=== PATIENT | female | born 1960 | race Two or more races ===

== ENCOUNTER → 2017-01-30 | Outpatient (CLI) | payer OTHER ==
[~2017-01-30] VITALS: Ht 157.5 cm; Wt 77.1 kg
[~2017-01-30] MED LIST: CALC-98 PO; CRESTOR10 MG PO; GLUC100018 PO; INSU100C SQ; INSU100V8 SQ; LIDOCAINE 2%/EPI 1:100,000 20 ML VIAL. IJ ONE; LIRA0.6P2 SQ; LISI2.5T PO; METF-620 PO
[2017-01-30 08:33] VITALS: BP 133/76
--- NOTE | 2017-02-01 14:48 | PATHOLOGY ---
PATHOLOGY REPORT * * * * * * * * FINAL DIAGNOSIS: Breast tissue, left breast nodule needle biopsy: - Ancient fibroadenoma, with focal calcifications. - Stromal fibrosis. COMMENT: There is no evidence of malignancy. (JPM:mgr; 02/01/2017) REPORT ELECTRONICALLY SIGNED BY: Buddy Schumacher M.D. DATE/TIME: 02/01/2017 14:47 * * * * * * * * GROSS PATHOLOGY: Received in formalin labeled "Chuy Stubbs, left breast tissue," are multiple needle cores of yellow-pinedo fibrofatty tissue measuring 2.5 x 1.9 x 0.4 cm in aggregate dimensions. The tissue is submitted in its entirety in cassettes A1 and A2. The cold ischemic time is 8 minutes. The total formalin fixation time is 33 hours and 37 minutes. ([facility]; 01/31/2017) INITIAL CPT CODE(S): A; 43976 Professional services [place] [place] [address] Technical services performed by [facility] at [address] [place] [address]. SPECIMEN(S) RECEIVED: A.Calcs in grid CLINICAL HISTORY: Nodule with calcs; calcs in grid PATIENT: CHUY STUBBS /AGE: 801/26/1960 (Age: 57) PATIENT #: [id number] ALT CASE #: SPECIMEN COLLECTION DATE: 01/30/2017 SPECIMEN RECEIVED DATE: 01/30/2017 [facility] - [address] [place] [address] - PHONE: [phone] * * * END OF REPORT * * *
--- NOTE | 2017-02-04 13:00 | RAD ---
Stereotactic left breast biopsy, 01/30/2017: History: Suspicious microcalcifications Outside mammograms demonstrated a cluster of microcalcifications in the upper outer quadrant of the left breast. Under local anesthesia, aseptic conditions and stereotactic guidance the [employer] [facility] biopsy instrument was passed into this region via a superior approach. Multiple 9 gauge vacuum-assisted core samples were obtained. Specimen mammography demonstrated a majority of the targeted microcalcifications within the specimens. A biopsy marker was deposited at the biopsy site. The biopsy instrument was then removed and hemostasis obtained. Two-view postprocedural mammograms were then obtained on a separate digital mammography unit to document position of the biopsy marker. There is one residual, coarse microcalcification visible at the biopsy site. The patient tolerated the procedure well and left the department in good condition. The subsequent pathology report indicated the presence of a fibroadenoma. This is a concordant finding.
== END | disposition home or self-care (01) ==
LOC: MAMMO 06:48
PROVIDERS: ATTEND Surgery
DX: R92.0 Mammographic microcalcification found on diagnostic imaging of breast (principal)
CPT/HCPCS: 19085; 77022; 88305; C1713; G0206; J3490; 77065

== ENCOUNTER → 2018-11-05 | Outpatient (CLI) | payer BC ==
[2017-01-30 08:33] VITALS: BP 133/76
[~2018-11-05] MED LIST changes: -LIDOCAINE 2%/EPI 1:100,000 20 ML VIAL. IJ ONE; -METF-620 PO; +METF10007 PO
--- NOTE | 2018-11-05 09:17 | RAD ---
DATE: 11/05/2018 EXAM: MAMMO SOL SCREENING BILATERAL HISTORY: Routine screening COMPARISON: 01/30/2017, 12/19/2016 This study was interpreted with the benefit of Computerized Aided Detection (CAD). Breast Density: SCATTERED The breast parenchyma shows scattered fibroglandular densities. Breast parenchyma level B. FINDINGS: 2-D and 3-D tomosynthesis imaging was performed in CC and MLO projections. An old breast biopsy marker is present laterally in the left breast. No new or enlarging breast densities are seen. Benign type calcifications are again noted. A cluster of microcalcifications in the lateral aspect of the right breast appears stable. No suspicious microcalcifications have developed. IMPRESSION: There is no mammographic evidence of malignancy in either breast. BI-RADS CATEGORY: 2 BENIGN FINDING(S) RECOMMENDED FOLLOW-UP: 12M 12 MONTH FOLLOW-UP PQRS compliance statement: Patient information was entered into a reminder system with a target due date for the next mammogram. Mammography is a sensitive method for finding small breast cancers, but it does not detect them all and is not a substitute for careful clinical examination. A negative mammogram does not negate a clinically suspicious finding and should not result in delay in biopsying a clinically suspicious abnormality. "Our facility is accredited by the [employer] Mammography [employer]."
== END | disposition home or self-care (01) ==
LOC: MAMMO 08:11
PROVIDERS: ATTEND Family Medicine
DX: Z12.31 Encounter for screening mammogram for malignant neoplasm of breast (principal); N64.89 Other specified disorders of breast
CPT/HCPCS: 77063; 77067

== ENCOUNTER → 2020-03-29 | Outpatient (CLI) | payer BC ==
[2017-01-30 08:33] VITALS: BP 133/76
--- NOTE | 2020-03-30 15:49 | RAD ---
DATE: 03/29/2020 8:55 AM EXAM: MAMMO SOL SCREENING BILATERAL HISTORY: Screening COMPARISON: 11/05/2018 Bilateral CC and MLO views of the breasts were performed. Bilateral breast tomosynthesis was performed in CC and MLO projections. This study was interpreted with the benefit of Computerized Aided Detection (CAD). FINDINGS: Breast Density: SCATTERED The breast parenchyma shows scattered fibroglandular densities. Breast parenchyma level B No suspicious masses, microcalcifications or architectural distortion is present to suggest malignancy in either breast. The visualized axillae are unremarkable. IMPRESSION: No mammographic evidence of malignancy. BI-RADS CATEGORY: 1 NEGATIVE RECOMMENDED FOLLOW-UP: 12M 12 MONTH FOLLOW-UP Annual screening mammography is recommended, unless clinically indicated sooner based on symptoms or change in physical exam. PQRS compliance statement: Patient information was entered into a reminder system with a target due date for the next mammogram. Mammography is a sensitive method for finding small breast cancers, but it does not detect them all and is not a substitute for careful clinical examination. A negative mammogram does not negate a clinically suspicious finding and should not result in delay in biopsying a clinically suspicious abnormality. "Our facility is accredited by the [employer] Mammography [employer]."
== END ==
LOC: MAMMO 09:22
PROVIDERS: ATTEND Family Medicine
DX: Z12.31 Encounter for screening mammogram for malignant neoplasm of breast (principal)
CPT/HCPCS: 77063; 77067

== ENCOUNTER → 2021-04-04 | Outpatient (CLI) | payer BC ==
[2017-01-30 08:33] VITALS: BP 133/76
[~2021-04-04] MED LIST changes: -LISI2.5T PO; +LISI2.5T12 PO
--- NOTE | 2021-04-04 16:39 | RAD ---
Bilateral digital screening 2-D and 3-D (digital breast tomosynthesis) mammogram: Reason for examination: Routine screening. Comparison: Mammograms from 03/29/2020 and 11/05/2018. Interpretation was made with the benefit of CAD. FINDINGS: Breast density: Category B. There are scattered areas of fibroglandular density. No suspicious breast mass, malignant appearing calcifications, or architectural distortion is seen. T here are 2 groups of benign-appearing rounded/punctate calcifications in the right breast in the 9:00 position at middle depth, and the 8:30 position at posterior depth. There is small amount of scarrin g around biopsy marker in the left upper quadrant. IMPRESSION: No evidence of malignancy. Assessment: BI-RADS 2 benign findings. Recommendation: Routine screening mammograms. The patient will receive a letter with the results in the mail. Patient information will be entered i nto the mammography reminder system with a target recall date for the next mammogram. A reminder shravan er will be generated. Electronically signed by: Libra Bryant MD (04/04/2021 4:37 PM) [email or web address]
== END ==
LOC: MAMMO 09:49
PROVIDERS: ATTEND Family Medicine
DX: Z12.31 Encounter for screening mammogram for malignant neoplasm of breast (principal)
CPT/HCPCS: 77063; 77067